=== PATIENT | male | born 1990 | race Caucasian/White ===

== ENCOUNTER 2021-08-24 14:22 | Emergency (ER) | payer BC ==
[2021-08-24 14:55] LABS: BASOPHILS # (AUTO) 0.1 10^3/uL (0.0-0.1); BASOPHILS % (AUTO) 0.7 %; EOSINOPHILS # (AUTO) 0.1 10^3/uL (0.0-0.7); EOSINOPHILS % (AUTO) 1.3 %; HCT - HEMATOCRIT 45.1 % (42.0-52.0); HGB - HEMOGLOBIN 15.3 g/dL (14.0-18.0); LYMPHOCYTES % (AUTO) 13.7 %; MEAN CORPUSCULAR HEMOGLOBIN 29.7 pg (27.0-31.0); MEAN CORPUSCULAR HGB CONC 33.9 g/dL (32.0-36.0); MEAN CORPUSCULAR VOLUME 87.4 fL (80.0-94.0); MEAN PLATELET VOLUME 9.3 fL (7.4-11.4); MONOCYTES # (AUTO) 0.7 10^3/uL (0.0-1.0); MONOCYTES % (AUTO) 10.3 %; NEUTROPHILS # (AUTO) 5.3 10^3/uL (1.5-6.6); NEUTROPHILS % (AUTO) 73.7 %; PLT - PLATELET COUNT 349 10^3/uL (130-450); RED BLOOD COUNT 5.16 10^6/uL (4.70-6.10); RED CELL DISTRIBUTION WIDTH 12.4 % (12.0-15.0); WHITE BLOOD COUNT 7.2 x10^3/uL (4.8-10.8)
[2021-08-24 14:57] LABS: BILIRUBIN,URINE NEGATIVE (NEGATIVE); CLARITY,URINE HAZY (CLEAR); GLUCOSE, URINE (UA) NEGATIVE (NEGATIVE); KETONES,URINE (UA) NEGATIVE (NEGATIVE); LEUKOCYTE ESTERASE, URINE NEGATIVE (NEGATIVE); NITRITE,URINE NEGATIVE (NEGATIVE); OCCULT BLOOD,URINE NEGATIVE (NEGATIVE); PH,URINE 7.5 PH (5.0-7.5); PROTEIN,URINE NEGATIVE (NEGATIVE); UROBILINOGEN,URINE 0.2 (NORMAL) E.U./dL (NORMAL)
[2021-08-24 15:01] LABS: INR 1.2 (0.8-1.2); PT - PROTHROMBIN TIME 13.1 secs (9.9-12.6)
--- NOTE | 2021-08-24 15:01 | ED Physician Documentation ---
PD HPI ABD PAIN - Stated complaint Stated Complaint: ABD PX/BLOOD IN STOOL - Chief complaint Chief Complaint: Abd Pain - History obtained from History obtained from: Patient - History of Present Illness Timing - onset: How many days ago (3) Timing - duration: Days (3) Timing - details: Gradual onset Pain level max: 5 Pain level now: 4 Quality: Cramping Location: LUQ, LLQ Improved by: No: Eating, Laying still, Vomiting, BM, Position, Meds Worsened by: No: Eating, Moving, Breathing, Position, Palpation Associated symptoms: Diarrhea, Hematochezia. No: Fever, Nausea, Vomiting, Hematemesis, Constipation, Melena, Dysuria, Hematuria, Chest pain Recently seen: Not recently seen - Additional information Additional information: Patient is a 31-year-old male who presents to the emergency department with left lower quadrant and left-sided abdominal pain for the past 2 to 3 days. Small amount of bright red blood per rectum. There was a small amount of bright red blood on the outside of the stool today as well. Had diarrhea for the past 2 days. Nothing makes it better or worse. No fevers. No chills. No recent antibiotics. Pain is described as cramping. Review of Systems Ten Systems: 10 systems reviewed and negative Constitutional: denies: Fever, Chills Cardiac: denies: Chest pain / pressure, Palpitations Respiratory: denies: Cough GI: denies: Vomiting Skin: denies: Rash Musculoskeletal: denies: Neck pain, Back pain Neurologic: denies: Headache PD PAST MEDICAL HISTORY - Past Medical History Past Medical History: Yes Cardiovascular: None Respiratory: None Neuro: None Endocrine/Autoimmune: None GI: None : None HEENT: None Psych: Depression, Anxiety Musculoskeletal: None Derm: None - Past Surgical History Past Surgical History: No - Present Medications Home Medications: Ambulatory Orders Medication Instructions Recorded Confirmed Venlafaxine ER [Effexor ER] 37.5 mg PO DAILY PM 08/24/21 08/24/21 busPIRone [Buspar] 5 mg PO BID 08/24/21 08/24/21 lamoTRIgine [LaMICtal] 100 mg PO DAILY PM 08/24/21 08/24/21 modafiniL [Provigil] 100 mg PO DAILY 08/24/21 08/24/21 traZODone [Desyrel] 50 mg PO HS 08/24/21 08/24/21 - Allergies Allergies/Adverse Reactions: Allergies Allergy/AdvReac Type Severity Reaction Status Date / Time Sulfa (Sulfonamide Allergy Unknown Verified 08/24/21 14:26 Antibiotics) - Social History Does the pt smoke?: No Smoking Status: Former smoker Does the pt drink ETOH?: Yes Does the pt have substance abuse?: Yes Substance Use and Type: Marijuana - Immunizations Immunizations are current?: Yes PD ED PE NORMAL - Vitals Vital signs reviewed: Yes - General General: Alert and oriented X 3, No acute distress - HEENT HEENT: Moist mucous membranes - Neck Neck: Supple, no meningeal sign - Cardiac Cardiac: RRR, Strong equal pulses - Respiratory Respiratory: No respiratory distress, Clear bilaterally - Abdomen Abdomen: Soft, Non distended, Other (mild TTP epigastric, LLQ, no peritoneal signs.) - Rectal Rectal: Other (normal rectal exam, no pain, no masses, no blood.) - Derm Derm: Warm and dry - Extremities Extremities: No edema - Neuro Neuro: Alert and oriented X 3 - Psych Psych: Normal mood, Normal affect Results - Vitals Vitals: Vital Signs - 24 hr 08/24/21 14:26 Temperature 36.5 C Heart Rate 76 Respiratory 16 Rate Blood Pressure 137/78 H O2 Saturation 96 Oxygen O2 Source Room air - Labs Labs: Laboratory Tests 08/24/21 08/24/21 08/24/21 14:45 14:45 14:45 WBC 7.2 RBC 5.16 Hgb 15.3 Hct 45.1 MCV 87.4 MCH 29.7 MCHC 33.9 RDW 12.4 Plt Count 349 MPV 9.3 Neut # (Auto) 5.3 Lymph # (Auto) 1.0 L [place] # (Auto) 0.7 Eos # (Auto) 0.1 Baso # (Auto) 0.1 Absolute Nucleated RBC 0.00 Nucleated RBC % 0.0 PT 13.1 H INR 1.2 APTT 35.3 H Sodium 137 Potassium 3.7 Chloride 97 L Carbon Dioxide 32 Anion Gap 8.0 BUN 11 Creatinine 0.9 Estimated GFR (MDRD) 99 Glucose 98 Calcium 9.9 Total Bilirubin 0.6 AST 26 ALT 33 Alkaline Phosphatase 49 Total Protein 7.4 Albumin 5.0 Globulin 2.4 Albumin/Globulin Ratio 2.1 Lipase 106 H Urine Color Urine Clarity Urine pH Ur Specific [place] Urine Protein Urine Glucose (UA) Urine Ketones Urine Occult Blood Urine Nitrite Urine Bilirubin Urine Urobilinogen Ur Leukocyte Esterase Urine RBC Urine WBC Ur Squamous Epith Cells Amorphous Sediment Urine Bacteria Ur Microscopic Review Urine Culture Comments 08/24/21 14:50 WBC RBC Hgb Hct MCV MCH MCHC RDW Plt Count MPV Neut # (Auto) Lymph # (Auto) [place] # (Auto) Eos # (Auto) Baso # (Auto) Absolute Nucleated RBC Nucleated RBC % PT INR APTT Sodium Potassium Chloride Carbon Dioxide Anion Gap BUN Creatinine Estimated GFR (MDRD) Glucose Calcium Total Bilirubin AST ALT Alkaline Phosphatase Total Protein Albumin Globulin Albumin/Globulin Ratio Lipase Urine Color YELLOW Urine Clarity HAZY Urine pH 7.5 Ur Specific [place] 1.020 Urine Protein NEGATIVE Urine Glucose (UA) NEGATIVE Urine Ketones NEGATIVE Urine Occult Blood NEGATIVE Urine Nitrite NEGATIVE Urine Bilirubin NEGATIVE Urine Urobilinogen 0.2 (NORMAL) Ur Leukocyte Esterase NEGATIVE Urine RBC None Seen Urine WBC 0-3 Ur Squamous Epith Cells NONE SEEN Amorphous Sediment Rare Urine Bacteria None Seen Ur Microscopic Review INDICATED Urine Culture Comments NOT INDICATED - Rads (name of study) CT abd/pelvis Radiology: Final report received, EMP read contemporaneously, See rad report PD MEDICAL DECISION MAKING - ED course Complexity details: reviewed results, re-evaluated patient, considered differential, d/w patient ED course: 31-year-old male with a small amount of hematochezia and diarrhea over the past 2 days. Afebrile. No significant lab abnormalities. CT shows a possible rectal mass. No palpable mass on digital rectal exam. No bleeding here. We will have him follow-up with general surgery for colonoscopy. Patient counseled regarding signs and symptoms for which I believe and urgent re-evaluation would be necessary. Patient with good understanding of and agreement to plan and is comfortable going home at this time This document was made in part using voice recognition software. While efforts are made to proofread this document, sound alike and grammatical errors may occur. IMPRESSION: Apparent 2 cm rectal mass. Differential diagnosis includes peristalsis. When clinically appropriate, please consider lower endoscopy for further evaluation. Incidental note is made of: Mild, fat-containing periumbilical hernia Departure - Departure Disposition: 01 Home, Self Care Clinical Impression: Hematochezia Condition: Good Instructions: ED Hematochezia Stable Follow-Up: Ingrid Painter PA-C [Primary Care Provider] - Miles Ellis MD [Provider Admit Priv/Credential] - Comments: Continue your current medications at home. Please follow-up with Dr. Caleb pitt or colonoscopy. Return if you worsen.
[2021-08-24] MEDS ORDERED: IOVERSOL 320 100 ML VIAL IVP ONE ×2 (15:04→15:32)
[2021-08-24 15:06] LABS: AMORPHOUS SEDIMENT,UR Rare /LPF; BACTERIA,URINE None Seen /HPF (None Seen); RBC,URINE None Seen /HPF (0-5); SQUAMOUS EPITHELIAL CELL,UR NONE SEEN (<= Few); WBC,URINE 0-3 /HPF (0-3)
[2021-08-24 15:07] LABS: ALBUMIN/GLOBULIN RATIO 2.1 (1.0-2.2); BILIRUBIN,TOTAL 0.6 mg/dL (0.2-1.0); CALCIUM 9.9 mg/dL (8.5-10.3); CREATININE 0.9 mg/dL (0.6-1.2); POTASSIUM 3.7 mmol/L (3.5-5.0); TOTAL PROTEIN 7.4 g/dL (6.7-8.2)
[2021-08-24 15:08] LABS: PARTIAL THROMBOPLASTIN TIME 35.3 secs (24.9-33.3)
[2021-08-24] MEDS ORDERED: SODIUM CHLORIDE 0.9% 1,000 ML IV STA (15:29)
--- NOTE | 2021-08-24 15:40 | CT Report ---
PROCEDURE: Abdomen/Pelvis W INDICATIONS: LLQ abd pain, rectal bleeding CONTRAST: IV CONTRAST: Optiray 320 ml: 100 PO CONTRAST: *NO PO CONTRAST TECHNIQUE: After the administration of IV contrast, 5 mm thick sections acquired from the diaphragms to the symp hysis. 5 mm thick coronal and sagittal reformats were acquired. For radiation dose reduction, the f ollowing was used: automated exposure control, adjustment of mA and/or kV according to patient size. COMPARISON: None. FINDINGS: Image quality: Excellent. ABDOMEN: Lung bases: Lung bases are clear. Heart size is normal. Solid organs: Liver and spleen are normal in size and enhancement. Gallbladder wall does not appear thickened. Biliary system is non dilated. Pancreas enhances normally. No adrenal nodules. Kidn eys demonstrate normal size and enhancement, without hydronephrosis. Peritoneum and bowel: Within the rectum, there is focal wall thickening with apparent shouldering, as seen on series 6 image 38 that measures approximately 2 cm. No other significant colonic abnormality can be seen. No dilated loops of small bowel are seen. No free fluid or air. Nodes and vessels: No retroperitoneal or mesenteric adenopathy by size criteria. Aorta and inferior vena cava are normal in size. Miscellaneous: A mild fat-containing periumbilical hernia is seen. PELVIS: Genitourinary: Bladder wall thickness is normal. Miscellaneous: No inguinal hernias or adenopathy. Bones: No suspicious bony lesions. No vertebral body compression fractures. IMPRESSION: Apparent 2 cm rectal mass. Differential diagnosis includes peristalsis. When clinically appropriate, please consider lower endoscopy for further evaluation. Incidental note is made of: Mild, fat-containing periumbilical hernia Reviewed by: Prosper Desir MD on 08/24/2021 2:39 PM [place] Approved by: Prosper Desir MD on 08/24/2021 2:39 PM [facility] Station ID: [id number]
[2021-08-24 15:57] VITALS: BP 121/84
== END 2021-08-24 16:15 | disposition home or self-care (01) ==
LOC: ED 14:22
DX: K92.1 Melena (principal); R19.7 Diarrhea, unspecified; K62.89 Other specified diseases of anus and rectum; K42.9 Umbilical hernia without obstruction or gangrene; Z87.891 Personal history of nicotine dependence
CPT/HCPCS: 36415; 74177; 80053; 81001; 83690; 85025; 85610; 85730; 99282; 99284; Q9967; 81003; 87086